=== PATIENT | female | born 1970 | race Caucasian/White ===

== ENCOUNTER 2023-09-23 16:38 | Emergency (ER) | payer SELFPAY ==
[2023-09-23 16:42] VITALS: BP 111/75
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
[2023-09-23] MEDS: ADACEL 0.5 ML IM (18:26)
[2023-09-23] MEDS: MOTRIN 600 MG PO (19:25)
[2023-09-23 19:30] VITALS: BP 127/76
== END 2023-09-23 19:31 | disposition home or self-care (01) ==
LOC: EMR 16:38
PROVIDERS: EMERGENCY PHYSICIAN Emergency Medicine; FAMILY PHYSICIAN Nurse Practitioner Family
DX: S50.811A Abrasion of right forearm, initial encounter (principal); S60.212A Contusion of left wrist, initial encounter; V43.52XA Car driver injured in collision with other type car in traffic accident, initial encounter; Y92.410 Unspecified street and highway as the place of occurrence of the external cause
CPT/HCPCS: 99283; 90471; 71046; 73110; 90715

== ENCOUNTER → 2023-12-14 17:26 | Outpatient (REF) | payer BC, SELFPAY | LOC: WDC 17:26 | PROVIDERS: ATTENDING PHYSICIAN Nurse Practitioner Obstetrics & Gynecology; FAMILY PHYSICIAN Family Medicine | DX: Z12.31 Encounter for screening mammogram for malignant neoplasm of breast (principal) | CPT/HCPCS: 77063; 77067 ==

== ENCOUNTER → 2024-12-14 16:22 | Outpatient (REF) | payer BC, SELFPAY | LOC: WDC 16:22 | PROVIDERS: ATTENDING PHYSICIAN Nurse Practitioner Obstetrics & Gynecology; FAMILY PHYSICIAN Family Medicine | DX: Z12.31 Encounter for screening mammogram for malignant neoplasm of breast (principal) | CPT/HCPCS: 77063; 77067 ==